=== PATIENT | male | born 1955 | race Caucasian/White ===

== ENCOUNTER 2018-09-14 10:38 | Day surgery (SDC) | payer MEDICARE ==
[2018-09-13 17:01] VITALS: BMI 20.9
[2018-09-14 11:59] LABS: #Eosinphils 0.2 thou/uL (0.0-0.7); #Lymphocytes 1.3 thou/uL (1.20-3.40); #Monocytes 0.6 thou/uL (0.11-0.59); #Neutrophils 4.9 thou/uL (1.40-6.50); %Basophils 0.4 % (0.0-1.0); %Eosinophils 2.7 % (0.0-10.0); %Lymphocytes 18.7 % (21.0-51.0); %Monocytes 8.1 % (0.0-10.0); %Neutrophils 70.1 % (42.0-75.0); Hemoglobin 10.8 g/dL (14.0-18.0); Mean Corpuscular HGB CONC 34.8 g/dL (32.0-36.0); Mean Corpuscular Hemoglobin 33.8 pg (27.0-31.0); Mean Corpuscular Volume 97.1 fL (78.0-98.0); Mean Platelet Volume 8.1 fL (7.4-10.4); Platelet Count 253 thou/uL (130-400); RBC Distribution Width 12.2 % (11.5-14.5); Red Blood Cell (RBC) Count 3.18 mill/uL (4.70-6.10)
[2018-09-14 12:43] LABS: Anion Gap 16 mmol/L (10-20); BUN (Urea Nitrogen) 31 mg/dL (8.4-25.7); Calc. Creatinine Clearance 13 mL/min (70-130); Calcium 9.7 mg/dL (7.8-10.44); Carbon Dioxide 27 mmol/L (23-31); Chloride 101 mmol/L (98-107); Estimated GFR-MDRD 11; Glucose 89 mg/dL (80-115); Potassium 4.6 mmol/L (3.5-5.1); Sodium 139 mmol/L (136-145)
--- NOTE | 2018-09-14 13:02 | HP ---
HISTORY OF PRESENT ILLNESS: Rick Levine is a 63-year-old male patient, who had a hemodialysis catheter placed at another facility in the past. He has been referred by Dr. Almonte for permanent dialysis access. He has seen Dr. Manrique who has performed a contrast venogram, suggesting the veins in his right arm are superior, but on clinical exam, the left antecubital vein is superior. The patient has had a previous stroke. He is nonambulatory, and presents today in the office. He has a left hemiparesis. He has completely paralyzed left upper extremity and partially paralyzed left lower extremity. He states he is able to transfer somewhat with a brace on his lower extremities. The patient dialyzes on Thursday, Thursday, and Thursday at [facility] on [facility] in [place] at 0900. He is followed by Dr. Almonte. The patient lives with his daughter in [place]. The patient's daughter or son-in-law takes him to dialysis and home. ALLERGIES: NONE. TOBACCO: Less than a pack a day. ALCOHOL: None. MEDICATIONS: 1. Eliquis. 2. Atorvastatin. 3. Aspirin. 4. Baclofen. 5. Meclizine. 6. Metoprolol. 7. Protonix. 8. Vitamins. ALLERGIES: NONE. PAST SURGICAL HISTORY: Hemodialysis catheter. He has never had a colonoscopy. 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 REVIEW OF SYSTEMS: Ten-point noncontributory otherwise. PHYSICAL EXAMINATION: VITAL SIGNS: Weight 145 pounds, height 5 feet and 11 inches. Blood pressure 132/84, pulse 81, temperature 99.3 degrees. GENERAL: He is in a wheelchair. His left upper extremity was paralyzed. He has weakness in his left lower extremity. LUNGS: Clear to auscultation. CARDIAC: Regular rate and rhythm without murmur or gallop. ABDOMEN: Soft and nontender. EXTREMITIES: As noted above. Palpable radial pulses bilaterally. Paralyzed left upper extremity. Antecubital vein right nonvisible. Good size antecubital vein left. ASSESSMENT AND PLAN: 1. End-stage renal disease. We will plan placement of a left arm fistula or graft. He understands risks, benefits, and consents. He will hold his Eliquis for 3 days prior to the operation. 2. Prior stroke in December 2017, left hemiparesis, nonambulatory. 3. Hypertension. 4. Chronic anticoagulation. 5. Chronic obstructive pulmonary disease. 6. Ongoing tobacco abuse. 7. History of atrial fibrillation, on anticoagulation. Job ID: [id number]
[2018-09-14] MEDS ORDERED: Bupivacaine HCl 0.5%/Epinephrine 1:200,000/PF 30 ml Vial ONE (13:03)
[2018-09-14] MEDS ORDERED: Protamine Sulfate 50 MG/5 ML VIAL ONE (13:03)
[2018-09-14] MEDS ORDERED: Heparin 10,000 UNITS/1 ML VIAL ONE (13:03)
[2018-09-14] MEDS ORDERED: Heparin 5,000 UNITS/ML VIAL ONE (13:03)
[2018-09-14] MEDS ORDERED: Iothalamate Meglumine 60% 50 ML VIAL FS ONE (13:04)
[2018-09-14] MEDS ORDERED: Sodium Chloride 0.9% 30 ML ONE (13:04)
[2018-09-14] MEDS ORDERED: Lidocaine 2% PF 5 ML VIAL ONE (13:04)
[2018-09-14] MEDS ORDERED: Fentanyl 100 MCG/2 ML VIAL ONE (13:06)
[2018-09-14] MEDS ORDERED: Lidocaine 4% Topical Sol 50 ML BOT ONE (13:06)
[2018-09-14] MEDS ORDERED: Famotidine/PF 20 mg/2ml Vial ONE (13:06)
--- NOTE | 2018-09-14 16:25 | RAD ---
AP view chest. HISTORY: Hemodialysis catheter insertion. AP view chest is obtained. There is a right jugular dialysis catheter distal tip overlying the SVC ri ght atrial junction. Mild cardiomegaly seen. No evidence of effusions, pneumonia or pneumothorax seen. IMPRESSION: mild cardiomegaly. No evidence of postprocedure hematoma or pneumothorax seen.
--- NOTE | 2018-09-14 16:38 | OP ---
DATE OF PROCEDURE: 09/14/2018 PREOPERATIVE DIAGNOSES: 1. End-stage renal disease. 2. Dysfunctional right internal jugular hemodialysis catheter. 3. Previous stroke with left hemiparesis. POSTOPERATIVE DIAGNOSES: 1. End-stage renal disease. 2. Dysfunctional right internal jugular hemodialysis catheter. 3. Previous stroke with left hemiparesis. PROCEDURE PERFORMED: Removal of old hemodialysis catheter, placement of new hemodialysis catheter, fluoroscopy used. Left arm primary fistula, proximal radial artery inflow, outflow, perforating branch antecubital vein without communication to the basilic vein noted, retrograde antecubital vein preserved 3.5 mm coronary dilators. ANESTHESIA: General, local with 0.5% Marcaine with epinephrine 30 mL mixed with 2% Xylocaine 10 mL. DESCRIPTION OF PROCEDURE: The patient was taken to the operating room, where under general anesthesia (severe COPD, previous stroke), neck and chest, left upper extremity, axilla, chest prepared with ChloraPrep and draped in routine fashion. Local anesthetic was infiltrated in the skin and subcutaneous tissue about the operative site. An incision was made over the right side of the neck and carried down through the skin, subcutaneous tissue, platysma, and then hemodialysis catheter dissected free, clamped, divided, J-wire threaded, dialysis catheter removed and new exit site selected. A stab incision was made over the right chest and using a tunneling device, the pre-curved AngioDynamics cuffed-tunneled hemodialysis tunneled between the 2 incisions, placed the fabric cuff beneath the skin exit site and catheter was secured with 2 interrupted sutures of 3-0 nylon. Sterile dressing applied. Over the J-wire, dilator and Peel-Away sheath placed in the superior vena cava. Dilator and J-wire were removed. Catheter was placed with the Peel-Away sheath. Peel-Away sheath was removed. Platysma was approximated with 4-0 Monocryl, skin with subdermal 4-0 Monocryl and [place] glue applied. Each port aspirated blood, flushed with saline solution and heparinized saline solution 1000 units heparin per mL indicating volume of the port. Dermabond and sterile dressings were applied. Fluoroscopic images revealed good catheter placement. Incision was made in the proximal volar forearm longitudinally below the antecubital fossa carried down through the skin and subcutaneous tissue. Antecubital vein was dissected free. Perforating branch dissected free. The patient was given 6000 units of heparin intravenously. Proximal radial artery dissected free. Brachial ulnar artery identified. Perforating branch dissected free and branches were divided between clips and 4-0 silk ties and spatulated over branch point, interrogated with coronary artery dilators, passing coronary artery dilators from a 2 mm to 3.5 mm coronary dye at the cephalic vein outflow tract upper arm without obstruction. It was flushed with heparinized saline solution. A bulldog clamp atraumatic applied. Proximal aorta was clamped proximally and distally. Longitudinal arteriotomy was made sharply, elongated with Ruiz scissors and the perforating branch antecubital vein was spatulated and end vein to side proximal radial anastomosis created with continuous suture of 6-0 Prolene, completing the anastomosis, ligating branches with 4-0 silk ties. We released an arterial inflow, noting a good Doppler signal in the cephalic vein outflow. Good hemostasis was noted. The patient was given 25 mg intravenously by Anesthesia. Subcutaneous tissue was approximated with 3-0 Monocryl, skin with subdermal 4-0 Monocryl, and [place] glue applied. The patient tolerated the procedure well. Job ID: [id number]
[2018-09-14] MEDS ORDERED: Heparin 10,000 UNITS/ 10 ML VIAL ONE ×2 (16:53→16:54)
[2018-09-14] MEDS ORDERED: HYDROcodone/Acetaminophen 5/325 mg Tablet ONE ×2 (17:00→17:38)
--- NOTE | 2018-09-15 20:25 | EKG ---
Test Reason : PREOP Blood Pressure : / mmHG Vent. Rate : 072 BPM Atrial Rate : 072 BPM P-R Int : 178 ms QRS Dur : 092 ms QT Int : 410 ms P-R-T Axes : 005 012 022 degrees QTc Int : 448 ms Normal sinus rhythm Normal ECG No previous ECGs available Confirmed by KATHY ROWE, DR. Espitia ([id number]) on 09/15/2018 8:24:24 PM Referred By: KOREY Confirmed By:DR. Nupur CHAVEZ MD
== END 2018-09-14 17:48 | disposition home or self-care (01) ==
LOC: SDC 10:38
PROVIDERS: ATTEND Specialist
PROC: 0JPT3XZ Removal of Tunneled Vascular Access Device from Trunk Subcutaneous Tissue and Fascia, Percutaneous Approach (ICD-10-PCS; principal; 2018-09-14)
PROC: 0JH63XZ Insertion of Tunneled Vascular Access Device into Chest Subcutaneous Tissue and Fascia, Percutaneous Approach (ICD-10-PCS; 2018-09-14)
PROC: 031C0ZF Bypass Left Radial Artery to Lower Arm Vein, Open Approach (ICD-10-PCS; 2018-09-14)
DX: I12.0 Hypertensive chronic kidney disease with stage 5 chronic kidney disease or end stage renal disease (principal); N18.6 End stage renal disease; T82.41XA Breakdown (mechanical) of vascular dialysis catheter, initial encounter; I69.354 Hemiplegia and hemiparesis following cerebral infarction affecting left non-dominant side; F17.210 Nicotine dependence, cigarettes, uncomplicated; J44.9 Chronic obstructive pulmonary disease, unspecified; I48.91 Unspecified atrial fibrillation; Z79.01 Long term (current) use of anticoagulants; Z79.82 Long term (current) use of aspirin; Z79.899 Other long term (current) drug therapy
CPT/HCPCS: 71045; 80048; 85025; 93005; 93010; C1752; C1769; J0670; J0690; J1644; J2001; J2720; J3010; Q9961; S0028

== ENCOUNTER 2018-11-23 06:51 | Day surgery (SDC) | payer MEDICARE ==
[2018-11-22 13:08] VITALS: BMI 20.2
--- NOTE | 2018-11-23 12:30 | SPC ---
EXAM: [facility] [place] INTRO CATH DIALY CIRC/AV S PROVIDED CLINICAL HISTORY: Nonmaturing left upper extremity arteriovenous dialysis fistula in a patient with end-stage renal dis ease. COMPARISON: None TECHNIQUE: The procedure including the risks and complications were explained to the patient, and informed conse nt was obtained. Patient was placed on the angiography table in the supine position. The left upper extremity was meticulously prepped and draped in usual sterile fashion. Limited ultrasound examination of the left upper extremity arteriovenous fistulogram was performed, a nd the fistula was accessed directed in the venous direction after the skin and subcutaneous tissues were infiltrated with buffered 1% lidocaine for local anesthesia. A 4 [place] introducer sheat h was placed. A fistulogram and venogram to the SVC were performed. Manual compression was applied to the venous outflow, and the arteriovenous anastomosis was refluxed. Areas of narrowing were seen in the proximal venous inflow. As result, the arteriovenous dialysis fis dori was accessed along the more proximal aspect of the left humerus directed in the arterial direction again after the skin and subcutaneous tissues were infiltrated with buffered 1% lidocaine f or local anesthesia. The 4 [place] introducer sheath was placed, and contrast was injected to confirm placement. The catheter was exchanged over a 0.035 inch Bentson guidewire for a 5 [place] vasc ular sheath. Manual compression was applied to the venous outflow, and contrast was injected to evaluate the area of narrowing. The cephalic vein outflow measured just less than 4 mm in greatest diameter. As result, a 4 mm angiop lasty balloon was placed over the guidewire, and angioplasty was performed of the proximal venous outflow in 2 separate areas. Patient demonstrated significant discomfort with inflation of the 4 mm a ngioplasty balloon at these regions. However, the angioplasty balloon didn't achieve full profile, and there was improved luminal diameter post angioplasty. Narrowing did persist in these regions alth ough improved, but there was brisk flow and washout of contrast. The vascular sheath were removed, and hemostasis was achieved with direct pressure at the puncture si adrián. Patient tolerated the procedure well and without immediate consultation. Patient was transported to radiology nurses holding for further monitoring prior to discharge. IMPRESSION: 1. Patent arteriovenous anastomosis of the left upper extremity arteriovenous dialysis fistula. 2. Focal areas of narrowing in the proximal venous outflow with generalized small caliber of the ceph alic vein outflow. 3. 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 There is improved luminal diameter after angioplasty, but the areas of narrowing did persist. Follow-up angiogram in 4 weeks may be helpful for further evaluation.
[2018-11-23] MEDS ORDERED: Heparin 1,000 UNITS/ML VIAL ONE (14:00)
--- NOTE | 2018-11-25 13:22 | SPC ---
EXAM: [facility] [place] INTRO CATH DIALY CIRC/AV S PROVIDED CLINICAL HISTORY: Nonmaturing left upper extremity arteriovenous dialysis fistula in a patient with end-stage renal dis ease. COMPARISON: None TECHNIQUE: The procedure including the risks and complications were explained to the patient, and informed conse nt was obtained. Patient was placed on the angiography table in the supine position. The left upper extremity was meticulously prepped and draped in usual sterile fashion. Limited ultrasound examination of the left upper extremity arteriovenous fistulogram was performed, a nd the fistula was accessed directed in the venous direction after the skin and subcutaneous tissues were infiltrated with buffered 1% lidocaine for local anesthesia. A 4 Congolese introducer sheat h was placed. A fistulogram and venogram to the SVC were performed. Manual compression was applied to the venous outflow, and the arteriovenous anastomosis was refluxed. Areas of narrowing were seen in the proximal venous inflow. As result, the arteriovenous dialysis fis dori was accessed along the more proximal aspect of the left humerus directed in the arterial direction again after the skin and subcutaneous tissues were infiltrated with buffered 1% lidocaine f or local anesthesia. The 4 Congolese introducer sheath was placed, and contrast was injected to confirm placement. The catheter was exchanged over a 0.035 inch Bentson guidewire for a 5 Congolese vasc ular sheath. Manual compression was applied to the venous outflow, and contrast was injected to evaluate the area of narrowing. The cephalic vein outflow measured just less than 4 mm in greatest diameter. As result, a 4 mm angiop lasty balloon was placed over the guidewire, and angioplasty was performed of the proximal venous outflow in 2 separate areas. Patient demonstrated significant discomfort with inflation of the 4 mm a ngioplasty balloon at these regions. However, the angioplasty balloon didn't achieve full profile, and there was improved luminal diameter post angioplasty. Narrowing did persist in these regions alth ough improved, but there was brisk flow and washout of contrast. The vascular sheath were removed, and hemostasis was achieved with direct pressure at the puncture si adrián. Patient tolerated the procedure well and without immediate consultation. Patient was transported to radiology nurses holding for further monitoring prior to discharge. IMPRESSION: 1. Patent arteriovenous anastomosis of the left upper extremity arteriovenous dialysis fistula. 2. Focal areas of narrowing in the proximal venous outflow with generalized small caliber of the ceph alic vein outflow. 3. 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 There is improved luminal diameter after angioplasty, but the areas of narrowing did persist. Follow-up arteriovenous fistulogram in 4 weeks may be helpful for further evaluation. Transcribed Date/Time: 11/25/2018 1:21 PM
== END 2018-11-23 10:25 | disposition home or self-care (01) ==
LOC: SPEC 06:51
PROVIDERS: ATTEND Specialist
PROC: 057 Upper Veins, Dilation (ICD-10-PCS; principal; 2018-11-23)
DX: T82.858A Stenosis of other vascular prosthetic devices, implants and grafts, initial encounter (principal); I12.0 Hypertensive chronic kidney disease with stage 5 chronic kidney disease or end stage renal disease; N18.6 End stage renal disease; J44.9 Chronic obstructive pulmonary disease, unspecified; F41.9 Anxiety disorder, unspecified; F17.200 Nicotine dependence, unspecified, uncomplicated; E78.5 Hyperlipidemia, unspecified; K21.9 Gastro-esophageal reflux disease without esophagitis; I69.352 Hemiplegia and hemiparesis following cerebral infarction affecting left dominant side; Z99.2 Dependence on renal dialysis; Z79.82 Long term (current) use of aspirin; Z79.01 Long term (current) use of anticoagulants; Z79.899 Other long term (current) drug therapy
CPT/HCPCS: 36901; 36902; C1725; J1644

== ENCOUNTER 2023-01-05 13:43 | Inpatient (IN) | payer MEDICARE, OTHER ==
[2023-01-05 15:44] LABS: #Monocytes 0.7 thou/uL (0.11-0.59); #Neutrophils 12.9 thou/uL (1.40-6.50); %Basophils 0.1 % (0.0-1.0); %Eosinophils 0.2 % (0.0-10.0); %Lymphocytes 2.5 % (21.0-51.0); %Monocytes 5.1 % (0.0-10.0); %Neutrophils 91.4 % (42.0-75.0); Hematocrit 16.8 % (42.0-52.0); Hemoglobin 5.2 g/dL (14.0-18.0); Mean Corpuscular Hemoglobin 28.9 pg (27.0-31.0); Mean Corpuscular Volume 93.3 fl (78.0-98.0); Mean Platelet Volume 11.8 fL (7.4-10.4); Platelet Count 293 10x3/uL (130-400); RBC Distribution Width 15.7 % (11.5-14.5); White Blood Cell (WBC) Count 14.1 10x3/uL (4.8-10.8)
[2023-01-05 16:17] LABS: Anion Gap 29 mmol/L (10-20); Calc. Creatinine Clearance 0 mL/min (70-130); Calcium 7.7 mg/dL (7.8-10.44); Chloride 104 mmol/L (98-107); Estimated GFR 2; Glucose 106 mg/dL (80-115); Sodium 136 mmol/L (136-145)
[2023-01-05 16:41] LABS: BUN (Urea Nitrogen) 173 mg/dL (8.4-25.7)
[2023-01-05 16:54] LABS: ALT (SGPT) Less than 7 U/L (8-55); AST (SGOT) 6 U/L (5-34); Albumin 3.4 g/dL (3.4-4.8); Alkaline Phosphatase 58 U/L (40-110); Bilirubin, Total 0.4 mg/dL (0.2-1.2); CK (CPK) 135 U/L (30-200); Calc. Creatinine Clearance 0 mL/min (70-130); Calcium 7.7 mg/dL (7.8-10.44); Chloride 105 mmol/L (98-107); Estimated GFR 2; Globulin 3.6 g/dL (2.4-3.5); Glucose 102 mg/dL (80-115); Lipase 122 U/L (8-78); Potassium 5.2 mmol/L (3.5-5.1); Sodium 138 mmol/L (136-145)
[2023-01-05 16:55] LABS: Carbon Dioxide 8 mmol/L (23-31)
[2023-01-05 16:58] LABS: Carbon Dioxide Less than 8 mmol/L (23-31)
[2023-01-05 17:27] LABS: Base Excess -19.1 mEq/L (-2.0 to +3.0); Calcium, Ionized (venous) 0.89 mmol/L (1.16-1.32); Chloride (VBG) 109 mmol/L (98-106); Hematocrit-VBG 19 % (42.0-52.0); Hemoglobin (Hb) 6.3 g/dL (12.6-17.4); Potassium (VBG) 4.86 mmol/L (3.70-5.30)
[2023-01-05 17:30] LABS: pH (venous) 7.178 (7.32-7.43)
[2023-01-05 17:30] LABS: BUN (Urea Nitrogen) 171 mg/dL (8.4-25.7)
[2023-01-05 17:31] LABS: Actual Bicarbonate (HCO3v) 7.5 mEq/L (22-28)
[2023-01-05] MEDS ORDERED: Sodium Bicarbonate 150 MEQ in Dextrose 5% in Water 1,000 ML IV SCH (18:00)
[2023-01-05] MEDS ORDERED: Sodium Bicarb 50 MEQ/50 ML Abboject 8.4% SYRINGE IVP SCH (18:00)
[2023-01-05] MEDS ORDERED: Senokot S 8.6-50 MG TAB PO PRN (18:46)
[2023-01-05] MEDS ORDERED: Bisacodyl 5 MG TAB PO PRN (18:46)
[2023-01-05] MEDS ORDERED: hydrALAZINE 20 MG/ML VIAL SLOW IVP PRN (18:48)
[2023-01-05 21:54] LABS: Calcium, Ionized (venous) 0.84 mmol/L (1.16-1.32); Chloride (VBG) 109 mmol/L (98-106); Hematocrit-VBG 26 % (42.0-52.0); Hemoglobin (Hb) 8.8 g/dL (12.6-17.4); Sodium 137.3 mmol/L (133-146)
[2023-01-05 21:55] LABS: pH (venous) 7.206 (7.32-7.43)
[2023-01-05 21:56] LABS: Actual Bicarbonate (HCO3v) 8.2 mEq/L (22-28)
[2023-01-05 22:02] LABS: #Eosinphils 0.1 thou/uL (0.0-0.7); #Monocytes 0.9 thou/uL (0.11-0.59); #Neutrophils 13.8 thou/uL (1.40-6.50); %Basophils 0.1 % (0.0-1.0); %Eosinophils 0.6 % (0.0-10.0); %Lymphocytes 2.9 % (21.0-51.0); %Monocytes 5.8 % (0.0-10.0); %Neutrophils 89.7 % (42.0-75.0); Hematocrit 24.4 % (42.0-52.0); Hemoglobin 7.8 g/dL (14.0-18.0); Mean Corpuscular Hemoglobin 30.6 pg (27.0-31.0); Mean Corpuscular Volume 95.7 fl (78.0-98.0); Mean Platelet Volume 11.7 fL (7.4-10.4); Platelet Count 233 10x3/uL (130-400); RBC Distribution Width 15.6 % (11.5-14.5); Red Blood Cell (RBC) Count 2.55 mill/uL (4.70-6.10); White Blood Cell (WBC) Count 15.4 10x3/uL (4.8-10.8)
[2023-01-05] MEDS: Acetaminophen 325 MG TAB PO PRN (22:22)
[2023-01-05] MEDS: Atorvastatin Calcium 40 MG TAB PO SCH (22:22)
[2023-01-05] MEDS: Pantoprazole 40 MG VIAL IVP SCH (22:24)
[2023-01-05] MEDS: Nicotine 21 MG PATCH TD SCH (22:28)
[2023-01-06 00:03] LABS: HBSAB Concentration 243.38 mIU/mL; HBSAg Index 0.21 S/CO (0-0.99); Hep B Core Total Ab Non-Reactive (NonReactive); Hep B Core Total Index 0.08 S/CO (0-0.79); Hep B Surf AB Reactive (NonReactive); Hep B Surf Ag Non-Reactive S/CO (NonReactive); Hep C IgG Ab Non-Reactive S/CO (NonReactive); Hep C Index 0.08 S/CO (0-0.79)
[2023-01-06 01:19] VITALS: BMI 16.6
[2023-01-06 05:06] LABS: #Eosinphils 0.1 thou/uL (0.0-0.7); #Monocytes 0.9 thou/uL (0.11-0.59); #Neutrophils 13.4 thou/uL (1.40-6.50); %Basophils 0.1 % (0.0-1.0); %Eosinophils 0.9 % (0.0-10.0); %Lymphocytes 2.5 % (21.0-51.0); %Monocytes 6.1 % (0.0-10.0); %Neutrophils 89.5 % (42.0-75.0); Hematocrit 22.9 % (42.0-52.0); Hemoglobin 7.1 g/dL (14.0-18.0); Mean Corpuscular Hemoglobin 30.3 pg (27.0-31.0); Mean Corpuscular Volume 97.9 fl (78.0-98.0); Mean Platelet Volume 11.7 fL (7.4-10.4); Platelet Count 229 10x3/uL (130-400); RBC Distribution Width 15.1 % (11.5-14.5); Red Blood Cell (RBC) Count 2.34 mill/uL (4.70-6.10)
[2023-01-06 05:20] LABS: INR-International Normal Ratio 1.2; Prothrombin Time 15.6 sec (12.0-14.7)
[2023-01-06 05:21] LABS: PTT 24.5 sec (22.9-36.1)
[2023-01-06 05:32] LABS: Iron 139 ug/dL (65-175); Iron Binding Capacity, Total 140 mcg/dL (261-462)
[2023-01-06 05:33] LABS: Calc. Creatinine Clearance 2 mL/min (70-130); Calcium 7.1 mg/dL (7.8-10.44); Chloride 106 mmol/L (98-107); Estimated GFR 2; Glucose 102 mg/dL (80-115); Iron 138 ug/dL (65-175); Potassium 4.7 mmol/L (3.5-5.1); Sodium 139 mmol/L (136-145)
[2023-01-06 05:45] LABS: BUN (Urea Nitrogen) 184 mg/dL (8.4-25.7)
[2023-01-06 05:48] LABS: Thyroid Stimulating Hormone 3.2921 uIU/mL (0.35-4.94)
[2023-01-06 05:51] LABS: Carbon Dioxide Less than 8 mmol/L (23-31)
[2023-01-06] MEDS ORDERED: Sodium Bicarb 50 MEQ/50 ML VIAL IVP SCH (06:15)
[2023-01-06] MEDS ORDERED: Sodium Bicarbonate 150 MEQ in Dextrose 5% in Water 1,000 ML IV SCH (06:15)
[2023-01-06] MEDS: Atorvastatin Calcium 40 MG TAB PO SCH ×3 (08:20→23:24)
[2023-01-06] MEDS: Pantoprazole 40 MG VIAL IVP SCH ×2 (08:20→22:06)
[2023-01-06] MEDS ORDERED: Sterile Water 10 ML VIAL IVP SCH (09:30)
[2023-01-06] MEDS ORDERED: Activase 2 MG VIAL CATH SCH (09:30)
[2023-01-06] MEDS ORDERED: Lidocaine 1% PF 5 ML VIAL ONE (09:49)
[2023-01-06] MEDS ORDERED: Sodium Bicarbonate 2.5 MEQ/5 ML VIAL ONE (09:49)
[2023-01-06] MEDS ORDERED: Heparin 5,000 UNITS/ML VIAL ONE (09:49)
[2023-01-06] MEDS ORDERED: Heparin 10,000 UNITS/ 10 ML VIAL ONE ×2 (11:58→14:13)
[2023-01-06] MEDS ORDERED: fentaNYL 50 mcg/mL 1 mL Vial ONE (13:02)
[2023-01-06] MEDS ORDERED: Midazolam HCl 2 mg/2 ml Vial ONE (13:02)
[2023-01-06] MEDS ORDERED: Morphine 4 MG/ML VIAL ONE (14:14)
[2023-01-06] MEDS ORDERED: Vancomycin HCl 125 MG Capsule PO SCH (14:45)
[2023-01-06] MEDS: Nicotine 21 MG PATCH TD SCH (17:15)
[2023-01-06] MEDS: Vancomycin HCl 125 MG Capsule PO SCH (17:15)
[2023-01-06] MEDS: Acetaminophen 325 MG TAB PO PRN (22:08)
[2023-01-07] MEDS: Vancomycin HCl 125 MG Capsule PO SCH ×6 (00:31→23:49)
[2023-01-07 04:41] LABS: #Monocytes 0.7 thou/uL (0.11-0.59); #Neutrophils 18.3 thou/uL (1.40-6.50); %Basophils 0.2 % (0.0-1.0); %Lymphocytes 1.3 % (21.0-51.0); %Monocytes 3.6 % (0.0-10.0); %Neutrophils 94.4 % (42.0-75.0); Hemoglobin 7.5 g/dL (14.0-18.0); Mean Corpuscular HGB CONC 34.1 g/dL (32.0-36.0); Mean Corpuscular Hemoglobin 30.4 pg (27.0-31.0); Mean Platelet Volume 11.9 fL (7.4-10.4); Platelet Count 229 10x3/uL (130-400); RBC Distribution Width 14.7 % (11.5-14.5); Red Blood Cell (RBC) Count 2.47 mill/uL (4.70-6.10); White Blood Cell (WBC) Count 19.4 10x3/uL (4.8-10.8)
[2023-01-07 04:45] LABS: Mean Corpuscular Volume 89.1 fl (78.0-98.0)
[2023-01-07 08:50] LABS: Anion Gap 25 mmol/L (10-20); BUN (Urea Nitrogen) 66 mg/dL (8.4-25.7); Calc. Creatinine Clearance 5 mL/min (70-130); Calcium 7.4 mg/dL (7.8-10.44); Carbon Dioxide 18 mmol/L (23-31); Chloride 99 mmol/L (98-107); Estimated GFR 5; Glucose 85 mg/dL (80-115); Potassium 3.3 mmol/L (3.5-5.1); Sodium 139 mmol/L (136-145)
[2023-01-07] MEDS ORDERED: Potassium Chloride 20 MEQ TAB PO SCH (11:45)
[2023-01-07] MEDS: Atorvastatin Calcium 40 MG TAB PO SCH ×2 (11:45→21:13)
[2023-01-07] MEDS: Pantoprazole 40 MG VIAL IVP SCH (11:46)
[2023-01-07] MEDS: Ondansetron PF 4 MG/2 ML Vial IVP PRN (11:51)
[2023-01-07] MEDS: Acetaminophen 325 MG TAB PO PRN (11:51)
[2023-01-07] MEDS ORDERED: Vancomycin 1 GM in Premix Bag 1 BAG IVPB SCH ×2 (12:15→20:00)
[2023-01-07] MEDS ORDERED: Vancomycin Hemodialysis Sliding Scale FS SCH (12:15)
[2023-01-07] MEDS: Epoetin (ESRD) 10,000 UNITS/ML VIAL IVP SCH (14:49)
[2023-01-07 14:52] LABS: #Monocytes 1.1 thou/uL (0.11-0.59); #Neutrophils 18.1 thou/uL (1.40-6.50); %Basophils 0.1 % (0.0-1.0); %Eosinophils 0.1 % (0.0-10.0); %Lymphocytes 1.6 % (21.0-51.0); %Monocytes 5.4 % (0.0-10.0); %Neutrophils 92.2 % (42.0-75.0); Hematocrit 22.1 % (42.0-52.0); Hemoglobin 7.5 g/dL (14.0-18.0); Mean Corpuscular HGB CONC 33.9 g/dL (32.0-36.0); Mean Corpuscular Hemoglobin 30.7 pg (27.0-31.0); Mean Corpuscular Volume 90.6 fl (78.0-98.0); Mean Platelet Volume 11.4 fL (7.4-10.4); Platelet Count 216 10x3/uL (130-400); RBC Distribution Width 14.8 % (11.5-14.5); Red Blood Cell (RBC) Count 2.44 mill/uL (4.70-6.10); White Blood Cell (WBC) Count 19.6 10x3/uL (4.8-10.8)
[2023-01-07 15:18] LABS: Anion Gap 22 mmol/L (10-20); BUN (Urea Nitrogen) 73 mg/dL (8.4-25.7); Calc. Creatinine Clearance 5 mL/min (70-130); Carbon Dioxide 21 mmol/L (23-31); Chloride 99 mmol/L (98-107); Estimated GFR 5; Glucose 91 mg/dL (80-115); Potassium 3.9 mmol/L (3.5-5.1); Sodium 138 mmol/L (136-145)
[2023-01-07] MEDS: Nicotine 21 MG PATCH TD SCH (21:13)
[2023-01-08] MEDS ORDERED: Calcium Gluc 4.6 MEQ/10 ML (100 MG/ML) SLOW IVP ONE (07:37)
[2023-01-08] MEDS ORDERED: CALCIUM GLUC 1 GM/NS 50 ML 1 GM in Premix Bag 1 BAG IVPB SCH (08:00)
[2023-01-08 08:36] LABS: Hematocrit 24.1 % (42.0-52.0); Hemoglobin 7.9 g/dL (14.0-18.0); Mean Corpuscular HGB CONC 32.8 g/dL (32.0-36.0); Mean Platelet Volume 11.7 fL (7.4-10.4); Platelet Count 205 10x3/uL (130-400); Red Blood Cell (RBC) Count 2.55 mill/uL (4.70-6.10); White Blood Cell (WBC) Count 21.4 10x3/uL (4.8-10.8)
[2023-01-08 08:39] LABS: Delete Auto Diff?? YES; Manual Diff?? YES; Mean Corpuscular Volume 94.5 fl (78.0-98.0)
[2023-01-08 08:55] LABS: Vancomycin, Random Less than 1.1 ug/mL (See Comment)
[2023-01-08 08:56] LABS: Anion Gap 19 mmol/L (10-20); BUN (Urea Nitrogen) 30 mg/dL (8.4-25.7); Calc. Creatinine Clearance 9 mL/min (70-130); Calcium 7.9 mg/dL (7.8-10.44); Carbon Dioxide 23 mmol/L (23-31); Chloride 100 mmol/L (98-107); Estimated GFR 10; Glucose 80 mg/dL (80-115); Potassium 3.7 mmol/L (3.5-5.1); Sodium 138 mmol/L (136-145)
[2023-01-08] MEDS ORDERED: Vancomycin 1 GM in Premix Bag 1 BAG IVPB SCH (10:45)
[2023-01-08] MEDS: Atorvastatin Calcium 40 MG TAB PO SCH ×2 (10:58→21:50)
[2023-01-08] MEDS: Vancomycin HCl 125 MG Capsule PO SCH ×3 (11:00→18:03)
[2023-01-08 11:16] LABS: Band 2 % (5-11); Eosinophils 1 % (0-10); Lymphocytes 5 % (21-51); Monocytes 3 % (0-10); Neutrophil 89 % (42-75)
[2023-01-08 11:17] LABS: Platelet Adequacy Comment Platelets Normal; Polychromasia SLIGHT = 2-3 cells (100X) (0-2/hpf)
[2023-01-08] MEDS: Ondansetron PF 4 MG/2 ML Vial IVP PRN (11:33)
[2023-01-08] MEDS: Saccharomyces boulardii 250 MG CAP PO SCH (11:34)
[2023-01-08] MEDS: Acetaminophen 325 MG TAB PO PRN (11:43)
[2023-01-08] MEDS: Nicotine 21 MG PATCH TD SCH (15:00)
[2023-01-08] MEDS ORDERED: Tuberculin PPD 0.1 ML VIAL I-DERMAL SCH ×2 (16:30)
[2023-01-08] MEDS ORDERED: Melatonin 3 MG TAB PO SCH (21:30)
[2023-01-09] MEDS: Vancomycin HCl 125 MG Capsule PO SCH ×5 (00:39→23:56)
[2023-01-09 03:55] LABS: #Eosinphils 0.1 thou/uL (0.0-0.7); #Monocytes 1.9 thou/uL (0.11-0.59); #Neutrophils 21.3 thou/uL (1.40-6.50); %Basophils 0.2 % (0.0-1.0); %Eosinophils 0.4 % (0.0-10.0); %Lymphocytes 2.4 % (21.0-51.0); %Neutrophils 88.3 % (42.0-75.0); Hematocrit 23.8 % (42.0-52.0); Hemoglobin 7.6 g/dL (14.0-18.0); Mean Corpuscular HGB CONC 31.9 g/dL (32.0-36.0); Mean Corpuscular Hemoglobin 30.5 pg (27.0-31.0); Mean Corpuscular Volume 95.6 fl (78.0-98.0); Mean Platelet Volume 11.9 fL (7.4-10.4); Platelet Count 192 10x3/uL (130-400); RBC Distribution Width 14.8 % (11.5-14.5); Red Blood Cell (RBC) Count 2.49 mill/uL (4.70-6.10); White Blood Cell (WBC) Count 24.1 10x3/uL (4.8-10.8)
[2023-01-09 04:24] LABS: Anion Gap 18 mmol/L (10-20); BUN (Urea Nitrogen) 38 mg/dL (8.4-25.7); Calc. Creatinine Clearance 8 mL/min (70-130); Calcium 7.8 mg/dL (7.8-10.44); Carbon Dioxide 22 mmol/L (23-31); Chloride 98 mmol/L (98-107); Estimated GFR 8; Glucose 117 mg/dL (80-115); Potassium 3.2 mmol/L (3.5-5.1); Sodium 135 mmol/L (136-145)
[2023-01-09 06:26] LABS: Vancomycin, Random 17.6 ug/mL (See Comment)
[2023-01-09] MEDS ORDERED: Heparin 10,000 UNITS/ 10 ML VIAL ONE ×2 (06:30→12:53)
[2023-01-09] MEDS ORDERED: Lidocaine 2% PF 5 ML VIAL ONE (06:30)
[2023-01-09] MEDS ORDERED: EPINEPHrine 1 MG/ML AMP ONE (06:30)
[2023-01-09] MEDS ORDERED: Bupivacaine PF 0.5% 30 ML VIAL ONE (06:30)
[2023-01-09] MEDS ORDERED: fentaNYL PF 100 MCG/2 ML SYRINGE ONE (06:59)
[2023-01-09] MEDS ORDERED: Sodium Chloride 0.9% 100 ML ONE (06:59)
[2023-01-09] MEDS ORDERED: CEFAZOLIN 2 GM VIAL ONE (06:59)
[2023-01-09] MEDS ORDERED: SUGAMMADEX SODIUM 200 MG/2 ML VIAL ONE (07:43)
[2023-01-09] MEDS ORDERED: Rocuronium Bromide 10 MG/ML (10ML VIAL) ONE (08:00)
[2023-01-09] MEDS ORDERED: Ondansetron PF 4 MG/2 ML Vial ONE (08:00)
[2023-01-09] MEDS ORDERED: PROPOFOL 200 MG/20 ML VIAL ONE (08:00)
[2023-01-09] MEDS ORDERED: Lidocaine 1% PF 5 ML VIAL ONE (08:00)
[2023-01-09] MEDS ORDERED: Promethazine HCl 25 MG/ML VIAL IM PRN (08:18)
[2023-01-09] MEDS ORDERED: Ondansetron HCl/PF 4 MG/2 ML Vial IVP PRN (08:18)
[2023-01-09] MEDS ORDERED: Fentanyl 250 MCG/5 ML VIAL ONE (09:10)
[2023-01-09] MEDS ORDERED: CEFAZOLIN 2 GM in Sodium Chloride 0.9% 100 ML IVPB SCH (10:15)
[2023-01-09] MEDS ORDERED: Albumin 25% 25 GM/100 ML BOT IVPB SCH (11:00)
[2023-01-09 11:04] LABS: #Eosinphils 0.1 thou/uL (0.0-0.7); #Monocytes 0.7 thou/uL (0.11-0.59); #Neutrophils 13.2 thou/uL (1.40-6.50); %Basophils 0.1 % (0.0-1.0); %Eosinophils 0.4 % (0.0-10.0); %Lymphocytes 2.4 % (21.0-51.0); %Monocytes 4.6 % (0.0-10.0); %Neutrophils 91.9 % (42.0-75.0); Hematocrit 19.4 % (42.0-52.0); Hemoglobin 6.1 g/dL (14.0-18.0); Mean Corpuscular HGB CONC 31.4 g/dL (32.0-36.0); Mean Corpuscular Hemoglobin 30.5 pg (27.0-31.0); Mean Platelet Volume 11.1 fL (7.4-10.4); Platelet Count 155 10x3/uL (130-400); RBC Distribution Width 14.9 % (11.5-14.5); White Blood Cell (WBC) Count 14.4 10x3/uL (4.8-10.8)
[2023-01-09 11:31] LABS: INR-International Normal Ratio 1.2; Prothrombin Time 15.8 sec (12.0-14.7)
[2023-01-09] MEDS: Potassium Chloride 20 MEQ in Premix Bag 1 BAG IVPB SCH ×2 (12:28→13:28)
[2023-01-09] MEDS: Morphine 2 MG/ML VIAL SLOW IVP PRN ×3 (12:51→22:42)
[2023-01-09] MEDS ORDERED: Silver Nitrate Application 1 EACH TOP SCH (13:15)
[2023-01-09] MEDS: Saccharomyces boulardii 250 MG CAP PO SCH (13:16)
[2023-01-09] MEDS: Epoetin (ESRD) 10,000 UNITS/ML VIAL IVP SCH (15:56)
[2023-01-09] MEDS ORDERED: Vancomycin HCl 500 MG in Sodium Chloride 0.9% 100 ML IVPB SCH (17:00)
[2023-01-09 17:07] LABS: Hematocrit 27.9 % (42.0-52.0); Platelet Count 138 10x3/uL (130-400)
[2023-01-09 17:13] LABS: Hemoglobin 9.3 g/dL (14.0-18.0)
[2023-01-09] MEDS: HYDROcodone/Acetaminophen 5/325 mg Tablet PO PRN (18:01)
[2023-01-09] MEDS: Nicotine 21 MG PATCH TD SCH (18:03)
[2023-01-09 21:54] LABS: Hematocrit 22.7 % (42.0-52.0); Hemoglobin 7.6 g/dL (14.0-18.0); Platelet Count 120 10x3/uL (130-400)
[2023-01-09] MEDS: Cefepime 1 GM in Sodium Chloride 0.9% 100 ML IVPB SCH (22:00)
[2023-01-09] MEDS: Atorvastatin Calcium 40 MG TAB PO SCH (22:01)
[2023-01-09] MEDS: Acetaminophen 325 MG TAB PO PRN (22:01)
[2023-01-09] MEDS: Melatonin 3 MG TAB PO PRN (22:02)
[2023-01-10 04:18] LABS: Hematocrit 23.5 % (42.0-52.0); Hemoglobin 7.4 g/dL (14.0-18.0); Platelet Count 129 10x3/uL (130-400)
[2023-01-10 04:23] LABS: #Eosinphils 0.1 thou/uL (0.0-0.7); #Monocytes 1.6 thou/uL (0.11-0.59); #Neutrophils 16.7 thou/uL (1.40-6.50); %Basophils 0.2 % (0.0-1.0); %Eosinophils 0.7 % (0.0-10.0); %Lymphocytes 3.4 % (21.0-51.0); %Monocytes 8.2 % (0.0-10.0); %Neutrophils 86.8 % (42.0-75.0); Hematocrit 23.3 % (42.0-52.0); Hemoglobin 7.5 g/dL (14.0-18.0); Mean Corpuscular HGB CONC 32.2 g/dL (32.0-36.0); Mean Corpuscular Hemoglobin 30.6 pg (27.0-31.0); Mean Corpuscular Volume 95.1 fl (78.0-98.0); Mean Platelet Volume 12.3 fL (7.4-10.4); Platelet Count 125 10x3/uL (130-400); RBC Distribution Width 16.4 % (11.5-14.5); Red Blood Cell (RBC) Count 2.45 mill/uL (4.70-6.10); White Blood Cell (WBC) Count 19.2 10x3/uL (4.8-10.8)
[2023-01-10 04:55] LABS: Anion Gap 14 mmol/L (10-20); BUN (Urea Nitrogen) 30 mg/dL (8.4-25.7); Calc. Creatinine Clearance 10 mL/min (70-130); Calcium 7.5 mg/dL (7.8-10.44); Carbon Dioxide 26 mmol/L (23-31); Chloride 101 mmol/L (98-107); Estimated GFR 11; Glucose 106 mg/dL (80-115); Potassium 3.9 mmol/L (3.5-5.1); Sodium 137 mmol/L (136-145)
[2023-01-10] MEDS: Vancomycin HCl 125 MG Capsule PO SCH ×4 (06:25→23:25)
[2023-01-10 07:11] LABS: Vancomycin, Random 17.2 ug/mL (See Comment)
[2023-01-10] MEDS: Morphine 2 MG/ML VIAL SLOW IVP PRN ×2 (07:14→14:49)
[2023-01-10] MEDS: Saccharomyces boulardii 250 MG CAP PO SCH (11:04)
[2023-01-10] MEDS: Cefepime 1 GM in Sodium Chloride 0.9% 100 ML IVPB SCH (11:07)
[2023-01-10] MEDS ORDERED: Vancomycin HCl 500 MG in Sodium Chloride 0.9% 100 ML IVPB SCH (17:00)
[2023-01-10] MEDS: HYDROcodone/Acetaminophen 5/325 mg Tablet PO PRN ×2 (17:53→23:28)
[2023-01-10] MEDS: Nicotine 21 MG PATCH TD SCH (17:53)
[2023-01-10] MEDS ORDERED: Cefepime 1 GM in Sodium Chloride 0.9% 100 ML IVPB SCH (21:00)
[2023-01-10] MEDS: Atorvastatin Calcium 40 MG TAB PO SCH (21:37)
[2023-01-11] MEDS: HYDROcodone/Acetaminophen 5/325 mg Tablet PO PRN ×3 (03:09→21:19)
[2023-01-11 04:34] LABS: #Eosinphils 0.2 thou/uL (0.0-0.7); #Monocytes 1.6 thou/uL (0.11-0.59); #Neutrophils 15.4 thou/uL (1.40-6.50); %Basophils 0.1 % (0.0-1.0); %Lymphocytes 4.2 % (21.0-51.0); %Monocytes 8.9 % (0.0-10.0); %Neutrophils 85.1 % (42.0-75.0); Hematocrit 21.7 % (42.0-52.0); Hemoglobin 6.9 g/dL (14.0-18.0); Mean Corpuscular HGB CONC 31.8 g/dL (32.0-36.0); Mean Corpuscular Hemoglobin 30.4 pg (27.0-31.0); Mean Corpuscular Volume 95.6 fl (78.0-98.0); Mean Platelet Volume 11.9 fL (7.4-10.4); Platelet Count 125 10x3/uL (130-400); RBC Distribution Width 16.1 % (11.5-14.5); Red Blood Cell (RBC) Count 2.27 mill/uL (4.70-6.10); White Blood Cell (WBC) Count 18.1 10x3/uL (4.8-10.8)
[2023-01-11 05:00] LABS: Anion Gap 14 mmol/L (10-20); BUN (Urea Nitrogen) 52 mg/dL (8.4-25.7); Calc. Creatinine Clearance 7 mL/min (70-130); Calcium 7.2 mg/dL (7.8-10.44); Carbon Dioxide 24 mmol/L (23-31); Chloride 97 mmol/L (98-107); Estimated GFR 8; Glucose 99 mg/dL (80-115); Potassium 3.9 mmol/L (3.5-5.1); Sodium 131 mmol/L (136-145)
[2023-01-11] MEDS: Vancomycin HCl 125 MG Capsule PO SCH ×3 (06:29→18:01)
[2023-01-11 06:59] LABS: Vancomycin, Random 22.2 ug/mL (See Comment)
[2023-01-11] MEDS: Saccharomyces boulardii 250 MG CAP PO SCH (08:49)
[2023-01-11] MEDS ORDERED: READ PPD TEST SITE PO SCH (09:00)
[2023-01-11] MEDS: Nicotine 21 MG PATCH TD SCH (14:29)
[2023-01-11] MEDS: Morphine 2 MG/ML VIAL SLOW IVP PRN ×2 (16:18→19:38)
[2023-01-11] MEDS: Atorvastatin Calcium 40 MG TAB PO SCH (21:19)
[2023-01-12] MEDS: Vancomycin HCl 125 MG Capsule PO SCH ×4 (00:01→17:37)
[2023-01-12] MEDS: Melatonin 3 MG TAB PO PRN (00:01)
[2023-01-12] MEDS: Morphine 2 MG/ML VIAL SLOW IVP PRN ×3 (00:02→20:29)
[2023-01-12 04:55] LABS: Vancomycin, Random 19.3 ug/mL (See Comment)
[2023-01-12 05:30] LABS: Magnesium 1.8 mg/dL (1.6-2.6)
[2023-01-12 07:14] LABS: #Eosinphils 0.2 thou/uL (0.0-0.7); #Monocytes 1.6 thou/uL (0.11-0.59); #Neutrophils 11.7 thou/uL (1.40-6.50); %Basophils 0.1 % (0.0-1.0); %Eosinophils 1.1 % (0.0-10.0); %Monocytes 11.5 % (0.0-10.0); %Neutrophils 82.5 % (42.0-75.0); Hematocrit 25.4 % (42.0-52.0); Hemoglobin 8.4 g/dL (14.0-18.0); Mean Corpuscular HGB CONC 33.1 g/dL (32.0-36.0); Mean Corpuscular Hemoglobin 30.8 pg (27.0-31.0); Mean Platelet Volume 12.2 fL (7.4-10.4); Platelet Count 117 10x3/uL (130-400); RBC Distribution Width 16.2 % (11.5-14.5); Red Blood Cell (RBC) Count 2.73 mill/uL (4.70-6.10); White Blood Cell (WBC) Count 14.2 10x3/uL (4.8-10.8)
[2023-01-12 07:24] LABS: Anion Gap 17 mmol/L (10-20); BUN (Urea Nitrogen) 69 mg/dL (8.4-25.7); Calc. Creatinine Clearance 6 mL/min (70-130); Calcium 7.1 mg/dL (7.8-10.44); Carbon Dioxide 19 mmol/L (23-31); Chloride 97 mmol/L (98-107); Estimated GFR 6; Glucose 103 mg/dL (80-115); Potassium 4.2 mmol/L (3.5-5.1); Sodium 129 mmol/L (136-145)
[2023-01-12] MEDS: Saccharomyces boulardii 250 MG CAP PO SCH (10:23)
[2023-01-12] MEDS: Epoetin (ESRD) 10,000 UNITS/ML VIAL IVP SCH (12:58)
[2023-01-12] MEDS: HYDROcodone/Acetaminophen 5/325 mg Tablet PO PRN (14:50)
[2023-01-12] MEDS ORDERED: Vancomycin HCl 500 MG in Sodium Chloride 0.9% 100 ML IVPB SCH (17:00)
[2023-01-12] MEDS: Carvedilol 6.25 MG TAB PO SCH (17:38)
[2023-01-12] MEDS: Nicotine 21 MG PATCH TD SCH (18:27)
[2023-01-12] MEDS: Atorvastatin Calcium 40 MG TAB PO SCH (20:33)
[2023-01-13] MEDS: Vancomycin HCl 125 MG Capsule PO SCH ×5 (05:22→23:16)
[2023-01-13 05:41] LABS: #Eosinphils 0.1 thou/uL (0.0-0.7); #Monocytes 1.4 thou/uL (0.11-0.59); #Neutrophils 7.3 thou/uL (1.40-6.50); %Basophils 0.1 % (0.0-1.0); %Eosinophils 1.3 % (0.0-10.0); %Lymphocytes 6.7 % (21.0-51.0); %Monocytes 14.8 % (0.0-10.0); %Neutrophils 76.4 % (42.0-75.0); Hematocrit 25.4 % (42.0-52.0); Hemoglobin 8.4 g/dL (14.0-18.0); Mean Corpuscular HGB CONC 33.1 g/dL (32.0-36.0); Mean Corpuscular Hemoglobin 30.8 pg (27.0-31.0); Mean Platelet Volume 11.7 fL (7.4-10.4); Platelet Count 110 10x3/uL (130-400); RBC Distribution Width 15.9 % (11.5-14.5); Red Blood Cell (RBC) Count 2.73 mill/uL (4.70-6.10); White Blood Cell (WBC) Count 9.5 10x3/uL (4.8-10.8)
[2023-01-13 07:26] LABS: Chloride 99 mmol/L (98-107); Sodium 135 mmol/L (136-145)
[2023-01-13 07:27] LABS: Anion Gap 14 mmol/L (10-20); BUN (Urea Nitrogen) 33 mg/dL (8.4-25.7); Calc. Creatinine Clearance 9 mL/min (70-130); Calcium 7.4 mg/dL (7.8-10.44); Carbon Dioxide 26 mmol/L (23-31); Estimated GFR 10; Glucose 94 mg/dL (80-115); Potassium 3.9 mmol/L (3.5-5.1)
[2023-01-13] MEDS: Carvedilol 6.25 MG TAB PO SCH (09:50)
[2023-01-13] MEDS: Saccharomyces boulardii 250 MG CAP PO SCH (09:50)
[2023-01-13] MEDS: Aspirin 81 mg Enteric Coated Tablet PO SCH (09:50)
[2023-01-13] MEDS: HYDROcodone/Acetaminophen 5/325 mg Tablet PO PRN (11:59)
[2023-01-13] MEDS ORDERED: Fentanyl 250 MCG/5 ML VIAL ONE (14:09)
[2023-01-13] MEDS ORDERED: HYDROmorphone 2 MG/ML VIAL ONE (14:10)
[2023-01-13] MEDS ORDERED: SUGAMMADEX SODIUM 200 MG/2 ML VIAL ONE (14:10)
[2023-01-13] MEDS ORDERED: PROPOFOL 200 MG/20 ML VIAL ONE (15:01)
[2023-01-13] MEDS ORDERED: ePHEDrine Sulfate 50 MG/10 ML VIAL ONE (15:01)
[2023-01-13] MEDS ORDERED: Lidocaine 1% PF 5 ML VIAL ONE (15:01)
[2023-01-13] MEDS ORDERED: Rocuronium Bromide 10 MG/ML (10ML VIAL) ONE (15:01)
[2023-01-13] MEDS ORDERED: EPINEPHrine 1 MG/ML AMP ONE (15:10)
[2023-01-13] MEDS ORDERED: Lidocaine 1% (PF) 30 ML VIAL ONE (15:10)
[2023-01-13] MEDS: Nicotine 21 MG PATCH TD SCH (17:04)
[2023-01-13] MEDS: Carvedilol 25 MG TAB PO SCH (17:04)
[2023-01-13] MEDS: Morphine 2 MG/ML VIAL SLOW IVP PRN (20:15)
[2023-01-13] MEDS: Atorvastatin Calcium 40 MG TAB PO SCH (20:16)
[2023-01-14] MEDS: Vancomycin HCl 125 MG Capsule PO SCH ×3 (05:28→18:50)
[2023-01-14 07:57] LABS: Vancomycin, Random 18.7 ug/mL (See Comment)
[2023-01-14] MEDS: HYDROcodone/Acetaminophen 5/325 mg Tablet PO PRN ×2 (08:46→14:16)
[2023-01-14] MEDS: Epoetin (ESRD) 10,000 UNITS/ML VIAL IVP SCH (08:47)
[2023-01-14] MEDS: Carvedilol 25 MG TAB PO SCH ×2 (14:02→18:50)
[2023-01-14] MEDS: Saccharomyces boulardii 250 MG CAP PO SCH (14:02)
[2023-01-14] MEDS: Aspirin 81 mg Enteric Coated Tablet PO SCH (14:02)
[2023-01-14] MEDS ORDERED: Vancomycin HCl 500 MG in Sodium Chloride 0.9% 100 ML IVPB SCH (17:00)
[2023-01-14] MEDS: Nicotine 21 MG PATCH TD SCH (18:50)
[2023-01-14] MEDS: Atorvastatin Calcium 40 MG TAB PO SCH (19:52)
[2023-01-14] MEDS: Morphine 2 MG/ML VIAL SLOW IVP PRN (19:52)
[2023-01-15] MEDS: Vancomycin HCl 125 MG Capsule PO SCH ×3 (00:02→11:46)
[2023-01-15 05:29] LABS: Hematocrit 26.3 % (42.0-52.0); Hemoglobin 8.3 g/dL (14.0-18.0); Manual Diff?? YES; Mean Corpuscular HGB CONC 31.6 g/dL (32.0-36.0); Mean Corpuscular Hemoglobin 30.2 pg (27.0-31.0); Mean Corpuscular Volume 95.6 fl (78.0-98.0); Mean Platelet Volume 11.7 fL (7.4-10.4); Platelet Count 115 10x3/uL (130-400); RBC Distribution Width 15.7 % (11.5-14.5); Red Blood Cell (RBC) Count 2.75 mill/uL (4.70-6.10); White Blood Cell (WBC) Count 7.2 10x3/uL (4.8-10.8)
[2023-01-15 05:30] LABS: Delete Auto Diff?? YES
[2023-01-15 05:49] LABS: Anion Gap 13 mmol/L (10-20); BUN (Urea Nitrogen) 35 mg/dL (8.4-25.7); Calc. Creatinine Clearance 10 mL/min (70-130); Calcium 7.9 mg/dL (7.8-10.44); Carbon Dioxide 29 mmol/L (23-31); Chloride 98 mmol/L (98-107); Estimated GFR 11; Glucose 94 mg/dL (80-115); Potassium 4.5 mmol/L (3.5-5.1); Sodium 135 mmol/L (136-145)
[2023-01-15 05:57] LABS: Anisocytosis SLIGHT = 6-15 cells HPF (0-5); CellaVision Operator ID lab.sh2; Eosinophils 2 % (0-10); Large Platelets 8.1 % (0-5); Lymphocytes 8 % (21-51); Macrocytosis SLIGHT = 6-15 cells HPF (0-5); Monocytes 7 % (0-10); Neutrophil 81 % (42-75); Ovalocytes SLIGHT = 2-5 cells HPF (0-1); Platelet Adequacy Comment Platelets Decreased; Polychromasia SLIGHT = 2-3 cells HPF (0-2); Smudge Cells 16.2 %; Total Cell Count 99
[2023-01-15] MEDS: Saccharomyces boulardii 250 MG CAP PO SCH (08:50)
[2023-01-15] MEDS: Aspirin 81 mg Enteric Coated Tablet PO SCH (08:51)
[2023-01-15] MEDS: Carvedilol 25 MG TAB PO SCH ×2 (08:51→15:54)
[2023-01-15] MEDS: HYDROcodone/Acetaminophen 5/325 mg Tablet PO PRN ×3 (08:51→20:44)
[2023-01-15] MEDS: Nicotine 21 MG PATCH TD SCH (15:53)
[2023-01-15] MEDS: Ondansetron PF 4 MG/2 ML Vial IVP PRN (18:21)
[2023-01-15] MEDS: Doxycycline 100 MG CAP PO SCH (20:44)
[2023-01-15] MEDS: Atorvastatin Calcium 40 MG TAB PO SCH (20:44)
[2023-01-16] MEDS: HYDROcodone/Acetaminophen 5/325 mg Tablet PO PRN ×3 (04:32→20:20)
[2023-01-16 04:37] LABS: Hematocrit 26.6 % (42.0-52.0); Hemoglobin 8.3 g/dL (14.0-18.0); Manual Diff?? YES; Mean Corpuscular HGB CONC 31.2 g/dL (32.0-36.0); Platelet Count 127 10x3/uL (130-400); RBC Distribution Width 15.5 % (11.5-14.5); Red Blood Cell (RBC) Count 2.77 mill/uL (4.70-6.10); White Blood Cell (WBC) Count 7.5 10x3/uL (4.8-10.8)
[2023-01-16 04:54] LABS: Delete Auto Diff?? YES
[2023-01-16 05:23] LABS: Anion Gap 14 mmol/L (10-20); BUN (Urea Nitrogen) 55 mg/dL (8.4-25.7); Calc. Creatinine Clearance 8 mL/min (70-130); Calcium 7.8 mg/dL (7.8-10.44); Carbon Dioxide 27 mmol/L (23-31); Chloride 96 mmol/L (98-107); Estimated GFR 8; Glucose 87 mg/dL (80-115); Sodium 132 mmol/L (136-145)
[2023-01-16 05:24] LABS: Anisocytosis SLIGHT = 6-15 cells HPF (0-5); Band 2 % (5-11); CellaVision Operator ID lab.abc; Eosinophils 2 % (0-10); Hypochromia SLIGHT = 6-15 cells HPF (0-5); Large Platelets 3.8 % (0-5); Lymphocytes 1 % (21-51); Monocytes 18 % (0-10); Neutrophil 77 % (42-75); Platelet Adequacy Comment Platelets Decreased; Polychromasia SLIGHT = 2-3 cells HPF (0-2); Smudge Cells 12.4 %; Total Cell Count 105
[2023-01-16] MEDS: Aspirin 81 mg Enteric Coated Tablet PO SCH (09:30)
[2023-01-16] MEDS: Doxycycline 100 MG CAP PO SCH ×2 (09:30→20:21)
[2023-01-16] MEDS: Carvedilol 25 MG TAB PO SCH ×2 (09:30→16:23)
[2023-01-16] MEDS: Saccharomyces boulardii 250 MG CAP PO SCH (09:30)
[2023-01-16] MEDS: Epoetin (ESRD) 10,000 UNITS/ML VIAL IVP SCH (09:30)
[2023-01-16] MEDS: hydrALAZINE 25 MG TAB PO SCH ×2 (16:23→20:21)
[2023-01-16] MEDS: Nicotine 21 MG PATCH TD SCH (17:41)
[2023-01-16] MEDS: Melatonin 3 MG TAB PO PRN (20:21)
[2023-01-16] MEDS: Atorvastatin Calcium 40 MG TAB PO SCH (20:21)
[2023-01-17 05:41] LABS: #Eosinphils 0.2 thou/uL (0.0-0.7); #Monocytes 1.1 thou/uL (0.11-0.59); #Neutrophils 3.8 thou/uL (1.40-6.50); %Basophils 0.2 % (0.0-1.0); %Eosinophils 2.6 % (0.0-10.0); %Lymphocytes 11.6 % (21.0-51.0); %Monocytes 19.2 % (0.0-10.0); %Neutrophils 65.9 % (42.0-75.0); Hematocrit 25.6 % (42.0-52.0); Hemoglobin 8.2 g/dL (14.0-18.0); Mean Corpuscular Hemoglobin 31.3 pg (27.0-31.0); Mean Corpuscular Volume 97.7 fl (78.0-98.0); Mean Platelet Volume 11.5 fL (7.4-10.4); RBC Distribution Width 15.6 % (11.5-14.5); Red Blood Cell (RBC) Count 2.62 mill/uL (4.70-6.10); White Blood Cell (WBC) Count 5.8 10x3/uL (4.8-10.8)
[2023-01-17 06:04] LABS: Platelet Count 122 10x3/uL (130-400)
[2023-01-17] MEDS: Saccharomyces boulardii 250 MG CAP PO SCH (11:16)
[2023-01-17] MEDS: Carvedilol 25 MG TAB PO SCH ×2 (11:16→17:44)
[2023-01-17] MEDS: Doxycycline 100 MG CAP PO SCH ×2 (11:16→22:02)
[2023-01-17] MEDS: hydrALAZINE 25 MG TAB PO SCH ×3 (11:16→22:02)
[2023-01-17] MEDS: Aspirin 81 mg Enteric Coated Tablet PO SCH (11:17)
[2023-01-17] MEDS: HYDROcodone/Acetaminophen 5/325 mg Tablet PO PRN (22:02)
[2023-01-17] MEDS: Melatonin 3 MG TAB PO PRN (22:02)
[2023-01-17] MEDS: Nicotine 21 MG PATCH TD SCH (22:03)
[2023-01-17] MEDS: Atorvastatin Calcium 40 MG TAB PO SCH (22:03)
[2023-01-18 06:44] LABS: #Eosinphils 0.2 thou/uL (0.0-0.7); #Monocytes 1.1 thou/uL (0.11-0.59); #Neutrophils 5.1 thou/uL (1.40-6.50); %Basophils 0.3 % (0.0-1.0); %Eosinophils 2.6 % (0.0-10.0); %Lymphocytes 10.8 % (21.0-51.0); %Monocytes 15.4 % (0.0-10.0); %Neutrophils 70.5 % (42.0-75.0); Hemoglobin 8.8 g/dL (14.0-18.0); Mean Corpuscular HGB CONC 31.4 g/dL (32.0-36.0); Mean Corpuscular Hemoglobin 30.6 pg (27.0-31.0); Mean Corpuscular Volume 97.2 fl (78.0-98.0); Mean Platelet Volume 11.9 fL (7.4-10.4); Platelet Count 150 10x3/uL (130-400); RBC Distribution Width 16.1 % (11.5-14.5); Red Blood Cell (RBC) Count 2.88 mill/uL (4.70-6.10); White Blood Cell (WBC) Count 7.3 10x3/uL (4.8-10.8)
[2023-01-18] MEDS: Carvedilol 25 MG TAB PO SCH ×2 (08:57→18:24)
[2023-01-18] MEDS: Doxycycline 100 MG CAP PO SCH ×2 (08:57→21:28)
[2023-01-18] MEDS: hydrALAZINE 25 MG TAB PO SCH ×3 (08:57→21:28)
[2023-01-18] MEDS: Saccharomyces boulardii 250 MG CAP PO SCH (08:57)
[2023-01-18] MEDS: Aspirin 81 mg Enteric Coated Tablet PO SCH (08:58)
[2023-01-18] MEDS: HYDROcodone/Acetaminophen 5/325 mg Tablet PO PRN ×2 (12:57→21:29)
[2023-01-18] MEDS: Nicotine 21 MG PATCH TD SCH (18:24)
[2023-01-18] MEDS: Melatonin 3 MG TAB PO PRN (21:28)
[2023-01-18] MEDS: Atorvastatin Calcium 40 MG TAB PO SCH (21:28)
[2023-01-19 06:05] LABS: #Eosinphils 0.3 thou/uL (0.0-0.7); #Monocytes 0.8 thou/uL (0.11-0.59); #Neutrophils 5.7 thou/uL (1.40-6.50); %Basophils 0.3 % (0.0-1.0); %Eosinophils 3.9 % (0.0-10.0); %Lymphocytes 9.4 % (21.0-51.0); %Monocytes 10.2 % (0.0-10.0); %Neutrophils 75.8 % (42.0-75.0); Hematocrit 27.3 % (42.0-52.0); Hemoglobin 8.7 g/dL (14.0-18.0); Mean Corpuscular HGB CONC 31.9 g/dL (32.0-36.0); Mean Corpuscular Hemoglobin 31.3 pg (27.0-31.0); Mean Corpuscular Volume 98.2 fl (78.0-98.0); Mean Platelet Volume 11.9 fL (7.4-10.4); Platelet Count 159 10x3/uL (130-400); RBC Distribution Width 15.9 % (11.5-14.5); Red Blood Cell (RBC) Count 2.78 mill/uL (4.70-6.10); White Blood Cell (WBC) Count 7.5 10x3/uL (4.8-10.8)
[2023-01-19 06:31] LABS: Anion Gap 16 mmol/L (10-20); BUN (Urea Nitrogen) 69 mg/dL (8.4-25.7); Calc. Creatinine Clearance 6 mL/min (70-130); Calcium 8.4 mg/dL (7.8-10.44); Carbon Dioxide 23 mmol/L (23-31); Chloride 102 mmol/L (98-107); Estimated GFR 6; Glucose 90 mg/dL (80-115); Potassium 5.1 mmol/L (3.5-5.1); Sodium 136 mmol/L (136-145)
[2023-01-19] MEDS: Carvedilol 25 MG TAB PO SCH ×3 (08:28→16:41)
[2023-01-19] MEDS: hydrALAZINE 25 MG TAB PO SCH ×3 (08:28→22:39)
[2023-01-19] MEDS: EPOETIN ALFA-EPBX (ESRD) 10,000 UNITS/ML VIAL IVP SCH (12:17)
[2023-01-19] MEDS: Aspirin 81 mg Enteric Coated Tablet PO SCH (12:17)
[2023-01-19] MEDS: Doxycycline 100 MG CAP PO SCH ×2 (12:18→22:39)
[2023-01-19] MEDS: Saccharomyces boulardii 250 MG CAP PO SCH (12:18)
[2023-01-19] MEDS ORDERED: Amlodipine 5 MG TAB PO SCH (15:45)
[2023-01-19] MEDS: Nicotine 21 MG PATCH TD SCH (17:49)
[2023-01-19] MEDS: HYDROcodone/Acetaminophen 5/325 mg Tablet PO PRN ×2 (18:33→23:40)
[2023-01-19] MEDS: Atorvastatin Calcium 40 MG TAB PO SCH (22:39)
[2023-01-19] MEDS: Melatonin 3 MG TAB PO PRN (22:39)
[2023-01-19] MEDS ORDERED: Melatonin 3 MG TAB PO PRN (23:25)
[2023-01-19] MEDS ORDERED: Melatonin 3 MG TAB PO SCH (23:30)
[2023-01-20] MEDS: hydrALAZINE 25 MG TAB PO SCH ×4 (08:36→22:16)
[2023-01-20] MEDS: Aspirin 81 mg Enteric Coated Tablet PO SCH (08:36)
[2023-01-20] MEDS: Carvedilol 25 MG TAB PO SCH ×2 (08:36→16:08)
[2023-01-20] MEDS: Saccharomyces boulardii 250 MG CAP PO SCH (08:36)
[2023-01-20] MEDS ORDERED: Amlodipine 5 MG TAB PO SCH (09:00)
[2023-01-20] MEDS ORDERED: Nicotine 14 MG PATCH TD SCH (18:00)
[2023-01-20] MEDS: Atorvastatin Calcium 40 MG TAB PO SCH (22:16)
[2023-01-20] MEDS: Amlodipine 5 MG TAB PO SCH (22:17)
[2023-01-21] MEDS: Aspirin 81 mg Enteric Coated Tablet PO SCH (13:18)
[2023-01-21] MEDS: Amlodipine 5 MG TAB PO SCH (13:18)
[2023-01-21] MEDS: Saccharomyces boulardii 250 MG CAP PO SCH (13:18)
[2023-01-21] MEDS: Carvedilol 25 MG TAB PO SCH ×2 (13:18→16:11)
[2023-01-21] MEDS: EPOETIN ALFA-EPBX (ESRD) 10,000 UNITS/ML VIAL IVP SCH (13:19)
[2023-01-21] MEDS: hydrALAZINE 25 MG TAB PO SCH (14:26)
[2023-01-21] MEDS: HYDROcodone/Acetaminophen 5/325 mg Tablet PO PRN (16:11)
[2023-01-21 16:47] VITALS: BP 140/84; TEMP 98.3
== END 2023-01-21 16:47 | DRG 264 ==
LOC: ERS 13:43 → 2NO 18:18
PROVIDERS: ADMIT Internal Medicine; ATTEND Internal Medicine
PROC: 30233N1 Transfusion of Nonautologous Red Blood Cells into Peripheral Vein, Percutaneous Approach (ICD-10-PCS; 2023-01-05)
PROC: 06HY33Z Insertion of Infusion Device into Lower Vein, Percutaneous Approach (ICD-10-PCS; principal; 2023-01-06)
PROC: 5A1D70Z Performance of Urinary Filtration, Intermittent, Less than 6 Hours Per Day (ICD-10-PCS; 2023-01-06)
PROC: 0JH63XZ Insertion of Tunneled Vascular Access Device into Chest Subcutaneous Tissue and Fascia, Percutaneous Approach (ICD-10-PCS; 2023-01-09)
PROC: 02HV33Z Insertion of Infusion Device into Superior Vena Cava, Percutaneous Approach (ICD-10-PCS; 2023-01-09)
PROC: B5181ZA Fluoroscopy of Superior Vena Cava using Low Osmolar Contrast, Guidance (ICD-10-PCS; 2023-01-09)
PROC: B548ZZA Ultrasonography of Superior Vena Cava, Guidance (ICD-10-PCS; 2023-01-09)
PROC: 0J9L0ZZ Drainage of Right Upper Leg Subcutaneous Tissue and Fascia, Open Approach (ICD-10-PCS; 2023-01-09)
PROC: 0J990ZZ Drainage of Buttock Subcutaneous Tissue and Fascia, Open Approach (ICD-10-PCS; 2023-01-09)
PROC: 5A1D70Z Performance of Urinary Filtration, Intermittent, Less than 6 Hours Per Day (ICD-10-PCS; 2023-01-09)
PROC: 0JB70ZZ Excision of Back Subcutaneous Tissue and Fascia, Open Approach (ICD-10-PCS; 2023-01-13)
DX: I13.2 Hypertensive heart and chronic kidney disease with heart failure and with stage 5 chronic kidney disease, or end stage renal disease (principal); N18.6 End stage renal disease; N17.9 Acute kidney failure, unspecified; A04.72 Enterocolitis due to Clostridium difficile, not specified as recurrent; E87.20 Acidosis, unspecified; I69.354 Hemiplegia and hemiparesis following cerebral infarction affecting left non-dominant side; D62 Acute posthemorrhagic anemia; T82.868A Thrombosis due to vascular prosthetic devices, implants and grafts, initial encounter; E44.0 Moderate protein-calorie malnutrition; L02.31 Cutaneous abscess of buttock; L02.415 Cutaneous abscess of right lower limb; I47.29 Other ventricular tachycardia; R78.81 Bacteremia; L02.212 Cutaneous abscess of back [any part, except buttock and flank]; Z68.1 Body mass index [BMI] 19.9 or less, adult; I50.22 Chronic systolic (congestive) heart failure; E78.5 Hyperlipidemia, unspecified; E86.0 Dehydration; F17.210 Nicotine dependence, cigarettes, uncomplicated; Z66 Do not resuscitate; I72.2 Aneurysm of renal artery; N28.1 Cyst of kidney, acquired; I73.9 Peripheral vascular disease, unspecified; E87.5 Hyperkalemia; E88.09 Other disorders of plasma-protein metabolism, not elsewhere classified; D63.1 Anemia in chronic kidney disease; Y83.8 Other surgical procedures as the cause of abnormal reaction of the patient, or of later complication, without mention of misadventure at the time of the procedure; L98.419 Non-pressure chronic ulcer of buttock with unspecified severity; L72.3 Sebaceous cyst; I08.0 Rheumatic disorders of both mitral and aortic valves; Z98.890 Other specified postprocedural states; Z79.01 Long term (current) use of anticoagulants; Z79.82 Long term (current) use of aspirin; Z79.899 Other long term (current) drug therapy; Z86.718 Personal history of other venous thrombosis and embolism; Z91.158 Patient's noncompliance with renal dialysis for other reason
CPT/HCPCS: 36415; 36416; 36430; 36901; 71045; 74176; 80048; 80202; 82010; 82274; 82550; 82607; 82805; 83540; 83550; 83605; 83630; 83690; 83735; 83880; 84443; 84484; 85025; 85610; 85730; 86580; 86704; 86850; 86900; 86901; 87070; 87077; 87186; 87205; 87324; 87449; 87493; 88305; 88313; 90935; 93005; 93306; 97139; C1725; C1751; C1752; C9113; G0257; J0171; J0613; J0692; J1170; J1642; J1644; J2001; J2250; J2270; J2272; J2405; J2704; J3010; J3370; J3370-JW; J3480; J3490; J7070; P9016; Q4081; Q5105; S0020